=== PATIENT | male | born 1965 | race Caucasian/White ===

== ENCOUNTER 2018-11-28 23:52 | Observation (INO) | payer OTHER ==
[2018-11-29 00:39] LABS: #Basophils 0.1 thou/uL (0.0-0.2); #Eosinphils 0.1 thou/uL (0.0-0.7); #Lymphocytes 3.2 thou/uL (1.20-3.40); #Monocytes 0.9 thou/uL (0.11-0.59); #Neutrophils 5.7 thou/uL (1.40-6.50); %Eosinophils 1.1 % (0.0-10.0); %Lymphocytes 32.2 % (21.0-51.0); %Monocytes 8.9 % (0.0-10.0); %Neutrophils 56.8 % (42.0-75.0); Hemoglobin 14.8 g/dL (14.0-18.0); Mean Corpuscular HGB CONC 35.9 g/dL (32.0-36.0); Mean Corpuscular Hemoglobin 34.3 pg (27.0-31.0); Mean Corpuscular Volume 95.5 fL (78.0-98.0); Mean Platelet Volume 6.6 fL (7.4-10.4); Platelet Count 246 thou/uL (130-400); RBC Distribution Width 11.7 % (11.5-14.5); Red Blood Cell (RBC) Count 4.31 mill/uL (4.70-6.10); White Blood Cell (WBC) Count 10.1 thou/uL (4.8-10.8)
[2018-11-29 00:43] LABS: Bilirubin Negative (Negative); Blood, Urine Negative (Negative); Clarity CLEAR (Clear); Glucose, Urine (Dipstick) Negative (Negative); Leukocyte Negative (Negative); Nitrite Negative (Negative); Protein, Urine (Dipstick) Negative (Neg-Trace); Specific Gravity, Urine 1.003 (1.002-1.036); Urobilinogen 0.2 mg/dL (0.2-1.0)
[2018-11-29 00:55] LABS: ALT (SGPT) 14 U/L (8-55); AST (SGOT) 24 U/L (5-34); Albumin 4.2 g/dL (3.5-5.0); Alkaline Phosphatase 64 U/L (40-150); Anion Gap 16 mmol/L (10-20); BUN (Urea Nitrogen) 6 mg/dL (8.4-25.7); Bilirubin, Total 0.4 mg/dL (0.2-1.2); Calc. Creatinine Clearance 0 mL/min (70-130); Calcium 9.2 mg/dL (7.8-10.44); Carbon Dioxide 20 mmol/L (22-29); Chloride 101 mmol/L (98-107); Estimated GFR-MDRD Greater than 90; Globulin 3.8 g/dL (2.4-3.5); Glucose 109 mg/dL (70-105); Potassium 3.4 mmol/L (3.5-5.1); Sodium 134 mmol/L (136-145)
[2018-11-29] MEDS ORDERED: Adacel (T-DAP) 0.5 ML SYRINGE ONE (01:20)
[2018-11-29] MEDS ORDERED: Aspirin 325 MG TAB ONE (01:20)
[2018-11-29] MEDS ORDERED: ALPRAZolam 0.25 MG TAB ONE (01:20)
[2018-11-29 03:02] VITALS: BMI 29.5
[2018-11-29 05:56] LABS: Troponin I Less than 0.010 ng/mL (< 0.028)
[2018-11-29 06:44] LABS: Troponin I Less than 0.010 ng/mL (< 0.028)
--- NOTE | 2018-11-29 07:44 | RAD ---
XR Chest 1 View Portable History: [Syncope] Comparison: None. Findings: Heart size upper limits of normal. No pneumothorax. No effusion. No focal airspace consolid ation. Impression: Mild cardiomegaly otherwise no acute intrathoracic abnormality.
--- NOTE | 2018-11-29 07:47 | CT ---
PRELIMINARY REPORT/[facility]/EMERGENCY AFTER HOURS PROCEDURE: EXAM: CT Head Without Contrast EXAM DATE/TIME: 11/29/2018 12:40 AM CLINICAL HISTORY: 53 years old, male; Signs and symptoms; Syncope and collapse; Patient HX: Er6; No previous on pacs; 6 2 yo male presents for evaluation of syncope and chest pain. Patient and his report that earlier tonight while he was walking in the kitchen she heard him fall to the ground. By the time she got in there he was getting up. He does not recall the fall and doesn't remember falling. He denies h eart fluttering or the sensation that he was going to pass out TECHNIQUE: Imaging protocol: Axial computed tomography images of the head without contrast. COMPARISON: No relevant prior studies available. FINDINGS: Brain: Normal. Ventricles: Normal. Bones/joints: Normal. Sinuses: Minimal ethmoid sinus disease. Mastoid air cells: Normal as visualized. Soft tissues: Unremarkable. IMPRESSION: No acute intracranial abnormality. Thank you for allowing us to participate in the care of your patient. Dictated and Authenticated by: Pepe Cox MD 11/29/2018 12:59 AM Central Time ([place] & [place]) FINAL REPORT HEAD CT WITHOUT CONTRAST: Date: 11/29/18 HISTORY: Syncope. COMPARISON: None. FINDINGS: This report is in agreement with the preliminary report by Jonelle. No acute intracranial process. IMPRESSION: No acute intracranial process. POS: OFF
[2018-11-29] MEDS ORDERED: Nitroglycerin 0.4 MG TAB (25 Tab Bottle) PO PRN (09:47)
[2018-11-29] MEDS ORDERED: Bisacodyl 5 MG TAB PO PRN (09:47)
[2018-11-29] MEDS ORDERED: Potassium Chloride 20 MEQ TAB PO SCH (10:00)
[2018-11-29] MEDS: Acetaminophen 325 MG TAB PO PRN ×2 (11:46→20:01)
[2018-11-29] MEDS: Nicotine 21 MG PATCH TD SCH (11:48)
--- NOTE | 2018-11-29 14:25 | HP ---
PRIMARY CARE PROVIDER: None. CHIEF COMPLAINT: Chest pain. HISTORY OF PRESENT ILLNESS: Mr. Preston is a pleasant 53-year-old gentleman, who was seen at [facility] on November 29, 2018. He reports that last night, he was walking in the kitchen. His heard him fall to the ground. He did not recall the fall and did not remember falling. By the time his saw him, he was getting up from the floor. He denies having any palpitations. He denies having any lightheadedness. On further questioning, he reports that he has lost consciousness about 6 times over the last 4 years and 3 times over the last one month. Two of those occasions were following bouts of coughing. He also reports on and off left-sided chest pain that is dull, accompanied by left upper extremity numbness and tingling. He denies having any shortness of breath or lightheadedness. He is unable to read the intensity of the pain. He is unable to recall any aggravating or relieving factors. REVIEW OF SYSTEMS: All other systems reviewed and found to be negative. PAST MEDICAL HISTORY: None; he has not seen a physician in 25 years. PAST SURGICAL HISTORY: Knee surgery and elbow surgery. SOCIAL HISTORY: The patient drinks 6 to 10 beers a day, he smokes one and half packs of cigarettes a day, and he denies any recreational drug use. FAMILY HISTORY: He denies any family history of coronary artery disease. ALLERGIES: CHLORPHENIRAMINE AND CODEINE. CURRENT MEDICATIONS: None. PHYSICAL EXAMINATION: GENERAL: On examination, Mr. Preston is awake and alert, not in acute distress. VITAL SIGNS: Blood pressure is 132/72, pulse 88, respiratory rate 15, and oxygen saturation 95% on room air. He is afebrile. EYES: No scleral icterus. No conjunctival pallor. ENT: Moist mucosal membranes. No oropharyngeal erythema or exudates. NECK: Supple, nontender. Trachea is midline. RESPIRATORY: Accessory muscles of breathing are not active. Chest wall movements are symmetric bilaterally. Lungs are clear to auscultation without wheeze, rhonchi, or crepitations. CARDIOVASCULAR: S1 and S2 are heard, regular. Peripheral pulses palpable. No carotid bruit. No pericardial rub. ABDOMEN: Soft, nontender. Bowel sounds heard. No hepatomegaly. No splenomegaly. NEUROLOGIC: Cranial nerves 2 through 12 are intact. No focal motor or sensory deficits. Power is 5/5 in all 4 extremities. Deep tendon reflexes are 2+. Plantars downgoing bilaterally. MUSCULOSKELETAL: Power is 5/5 in all 4 extremities. SKIN: No rashes or subcutaneous nodules. LYMPHATIC: No cervical lymphadenopathy. PSYCHIATRIC: Normal mood, normal affect. The patient is oriented to person, place, and time. DIAGNOSTIC STUDIES: Mr. Preston' labs and investigations were reviewed. I reviewed his electrocardiogram, which shows normal sinus rhythm and incomplete right bundle-branch block, no ST changes to suggest an acute coronary syndrome. I also reviewed his chest x-ray, which does not show any pulmonary infiltrates. Noncontrast CT scan of the brain was unremarkable. She has an unremarkable CBC, decreased sodium of 134, decreased potassium of 3.4, decreased carbon dioxide of 20, normal anion gap, normal creatinine, and unremarkable liver profile. Troponin I is negative x3. Urinalysis is negative. Plasma alcohol level is elevated at 128. ASSESSMENT AND PLAN: Mr. Preston is a pleasant 53-year-old gentleman, who was seen at [facility] on November 29, 1018. His problem list includes: 1. Chest pain: Mr. Preston is presenting with chest pain of few months' duration. Given his risk factors, he will be admitted to the hospital on observation status. We will obtain stress test. Further management depending on the outcome of the test. We will also check D-dimer, since he also had episode of syncope. 2. Syncope: Etiology is unclear. We will check a 2D echocardiogram to rule out valvular abnormalities. We will also consult Cardiology Service for opinion and help with further management. 3. Hyponatremia: Mild, likely asymptomatic trauma. We will recheck sodium level. 4. Hypokalemia: Replace potassium and recheck. 5. Tobacco abuse: The patient has been counseled regarding tobacco cessation. We will start him on nicotine replacement therapy. 6. Daily alcohol use: The patient has been counseled regarding alcohol cessation. We will start him on ASE protocol. LEVEL OF RISK: High. LEVEL OF COMPLEXITY: High. Job ID: [id number]
--- NOTE | 2018-11-29 17:53 | NM ---
Nuclear medicine Cardiac myocardial perfusion SPECT Ejection fraction study Wall motion cine: DATE: 11/29/2018 History: 53 year old smoker presents with chest pain. TECHNIQUE: Number of days:1 Rest study: Technetium 99m-sestamibi (Cardiolite) dose:10.8 mCi Pharmacologic stress: Lexiscan dose:0.4 mg Stress study: Technetium 99m-sestamibi (Cardiolite) dose:27.9 mCi FINDINGS: Cardiac (myocardial perfusion) SPECT There are no fixed or reversible myocardial perfusion defects. Ejection fraction study Left ventricular EF = 71% Wall motion cine Normal IMPRESSION: Normal.
[2018-11-29] MEDS ORDERED: Regadenoson 0.4 MG/5 ML SYRINGE ONE (20:06)
[2018-11-29 20:29] LABS: Amphetamine Not Detected (NotDetected); Barbiturates Screen Not Detected (NotDetected); Benzodiazepine Screen Detected (NotDetected); Cocaine Metabolite Screen Not Detected (NotDetected); Medtox Control Line Valid? VALID (VALID); Medtox Reader # READER 1; Methadone Not Detected (NotDetected); Methamphetamine Not Detected (NotDetected); Opiate Screen Not Detected (NotDetected); Oxycodone Screen Not Detected (NotDetected); Phencyclidine (PCP) Not Detected (NotDetected); THC/Cannabinoid Screen Not Detected (NotDetected); Tricyclic Screen Not Detected (NotDetected)
--- NOTE | 2018-11-29 21:06 | CON ---
DATE OF CONSULTATION: PRIMARY CARE PHYSICIAN: No primary care doctor. PRIMARY WINDOW MACHINE OPERATOR: Melita Tariq MD REASON FOR CONSULTATION: Status post syncopal episodes. HISTORY OF PRESENT ILLNESS: Mr. Preston is a 53-year-old male with significant history of asthma, however, he is having followup with any doctor, primary care doctor, or any other doctor for more than 30 years. Last night when he was watching TV and he decided to get up to get some snack last night around 10:30 when he was at the kitchen, next thing he remembers he was on the floor. He denied any dizziness, lightheadedness, chest pain or discomfort, shortness of breath, or any cardiac complaints prior to the episode. This is his third episode of syncopal episode. He has syncopal episode twice within the 6 weeks, which occur at night with severe cough. He also complains of severe cough in the morning at least 10 to 20 minutes every morning for more than 1 year. At that time, however, he never passed out in the morning. He also complains about chronic headache around bilateral temporal areas and he had to take BC Powder several times a day. He drinks caffeine all day long with energy drink. He also complained of burning and numbness sensation to left upper shoulder especially when he drives. When he is driving, he use the left arm to drive. He also complained about left pressure like discomfort in the left upper chest for several years especially when he is driving and after he eat. At this moment, the patient denied dizziness, lightheadedness, chest pain or discomfort. He had chest numbness or burning like sensation to left upper shoulder without any other cardiac complaints. He never followed up with his primary care doctor before. He never has cardiac workup before. He drinks 16 ounces of beer and 9 pack a day and he smokes 1 to 1-1/2 pack a day. PAST MEDICAL HISTORY: in the past, he says 90% cured. The family member does not know exactly what is going on at this moment. He has a history of asthma and he takes yezg-qin-icaodni inhaler at home. PAST SURGICAL HISTORY: The patient has right knee and right elbow surgery when he was in college. FAMILY HISTORY: The patient's father due to the lung and bone cancer. The patient's mother has history of breast cancer. The patient's grandfather at the paternal side has a cancer. SOCIAL HISTORY: He is single, but he lives with his partner for more than 1-1/2 years, she is ER nurse. He drinks at least 16 ounces of beer 9 pack a day and night and smokes 1 to 1-1/2 packs of cigarettes per day. He denies history of drug abuse. He drinks Mountain Dew, tea, and monster, some energy drink whole day through the day. He does not do the exercise. ALLERGIES: ALL THE COUGH MEDICINES. CURRENT MEDICATIONS: He takes: 1. N-G-C. 2. Abpd-gkh-vlmjlzt testosterone supplement. 3. BC Powder. 4. Primatene Mist, which is inhaler [id number]-pcnbjai medication. REVIEW OF SYSTEMS: 12-point review of systems is negative unless otherwise mentioned in the HPI. PHYSICAL EXAMINATION: VITAL SIGNS: Blood pressure 132/72, pulse 88 and sinus rhythm, temperature 98.0, O2 saturation 95% with room air. GENERAL: The patient is alert and oriented x4, in no acute distress. HEENT: Normocephalic, atraumatic. Eyes, extraocular muscles intact. ENT and mouth; oral mucosa moist without lesion. NECK: Supple. Normal range of motion. No JVD. RESPIRATORY: Wheezing in bilateral lower lobes with intermediate severe cough without any phlegm or sputum. CARDIOVASCULAR: Regular rate and rhythm. S1 and S2. There is no S3 or S4. No significant murmur, hives, or thrill noted. EXTREMITIES: 2+ pulses in the bilateral upper and lower extremities. No edema in the lower extremities. The patient's carotid pulses are present without bruit or thrill. ABDOMEN: Soft, nontender. No mass to palpate. Bowel sounds are present. SKIN: Warm and dry. No erythema, lesion, or hematoma noticed. MUSCULOSKELETAL: The patient is able to move all extremities without difficulty. The patient denies claudication. NEUROLOGIC: The patient is alert and oriented x4. No acute distress. PSYCHIATRIC: The patient's mood is appropriate. Nonfocal. LABORATORY DATA: WBC 10.1, hemoglobin 14.8, hematocrit 41.1, platelets 246. Sodium 134, potassium 3.4, BUN 6, creatinine 0.77, AST 24, ALT 14. Troponins negative x3. Urine sample or UA is negative and plasma alcohol is 128. Chest x-ray shows mild cardiomegaly. Otherwise, no acute intracranial abnormality and CT shows no acute intracranial process. ASSESSMENT AND PLAN: 1. Syncopal episode. We would like to continue to monitor on the telemetry, and he has echocardiogram and a stress test ordered. We would like to see the result. His brain CT scan show a negative of intracranial change and we are recommending him to cut down his alcohol. 2. Shortness of breath also with wheezing, which is possibly due to possible chronic obstructive pulmonary disease. However, he has not followed up with his primary care doctor or any flame cutter for more than 30 years. He might need pulmonary function test as outpatient. The patient was recommended to start smoking cessation. 3. EtOH abuse. He drinks 16 ounces of beer 9 pack a day at least. He might need extra alcohol tonight to prevent delirium tremens. 4. Tobacco abuse. The patient was recommended to start smoking cessation. 5. Chest pain. He is complaining of chest pain and the pressure like chest pain to the left upper chest and burning and numbness like sensation to the left upper extremity for more than a year, which is possible from the symptom of severe coughing in the morning for more than a year. He is going to have a stress test while he is in the hospital with echocardiogram. We would like to see the result. Thank you very much for allowing the cardiology service to participate in the care of this patient. We will follow along with the patient's care team and make further recommendation as appropriate. Job ID: [id number]
--- NOTE | 2018-11-29 21:33 | CON ---
DATE OF CONSULTATION: 11/29/2018 INDICATION FOR CONSULTATION: A 53-year-old patient with chest pain and syncope. HISTORY OF PRESENT ILLNESS: This is a very pleasant 53-year-old gentleman who has not seen a doctor for more than 25 years. He says he has a history of asthma who uses uoya-rxe-fngpilf Primatene Mist, also drinks alcohol and continues to smoke 1-1/2 packs per day and has about 5 drinks a day. He had got up yesterday evening to go get some more snacks while he was lying in bed, watching TV and then apparently had a syncopal episode. He has been complaining of some dyspnea on exertion and some chest discomfort. He presented to the hospital today. His EKG shows decreased R-wave progression in V1 through V3, but cardiac enzymes are unremarkable. PAST MEDICAL HISTORY: Please refer to the notes dictated by my nurse practitioner. SOCIAL HISTORY: Please refer to the notes dictated by my nurse practitioner. FAMILY HISTORY: Please refer to the notes dictated by my nurse practitioner. REVIEW OF SYSTEMS: Please refer to the notes dictated by my nurse practitioner. MEDICATIONS: In the emergency room, he was given Xanax and aspirin. He has also been ordered Lovenox for tomorrow morning. PHYSICAL EXAMINATION: GENERAL: Reveals a well-developed, well-nourished gentleman, in no acute distress. VITAL SIGNS: Blood pressure 132/72, heart rate is stable . He is afebrile. Respiratory rate 15. HEENT: Unremarkable. Carotid pulses are present without bruits. CHEST: Shows diffuse expiratory wheezing, more so on the left side than the right. I did not hear any rhonchi. CARDIOVASCULAR: Reveals a regular rate and rhythm. Normal S1, S2. No S3 or S4. There are no significant murmurs, heaves, thrills, bruits, or rubs. ABDOMEN: Shows obesity. Positive bowel sounds. EXTREMITIES: Show no clubbing, cyanosis, or edema. Pedal pulses are present. NEUROLOGIC: Appears to be intact. SKIN: Warm and dry. He does have erythematous color to his skin. IMAGING: EKG shows a normal sinus rhythm with decreased R-wave progression in V1 through V4. Chest x-ray shows mild cardiomegaly. CT of the brain was unremarkable. LABORATORY DATA: Shows a BUN of 6, creatinine 0.77, potassium 3.4, sodium was 134, blood sugar 109. Hemoglobin 14.8, WBC of 10.1, platelet count 246,000. IMPRESSION: 1. Episode of syncope of uncertain etiology. He will undergo an echocardiogram and stress testing to rule out evidence of coronary artery disease, ischemia and also rule out any structural abnormalities. He has had other episodes of syncope apparently, but these were associated with coughing. He has had about 3 episodes of syncope in the last month or two. If we do not find any evidence of the etiology for the syncope, I would suggest he undergo implantation of a loop recorder for further evaluation. 2. History of mild cardiomyopathy. He will undergo an echocardiogram for better evaluation. 3. History of asthma. He has not seen a physician for 25 years. I suggest he find a primary care physician or nursing aide and also will need to undergo pulmonary function studies if his cardiac status rules out for evidence of underlying ischemia. Job ID: [id number] MTDD
[2018-11-30 05:20] LABS: #Basophils 0.1 thou/uL (0.0-0.2); #Eosinphils 0.1 thou/uL (0.0-0.7); #Monocytes 0.9 thou/uL (0.11-0.59); #Neutrophils 3.9 thou/uL (1.40-6.50); %Eosinophils 2.1 % (0.0-10.0); %Lymphocytes 28.1 % (21.0-51.0); %Monocytes 13.2 % (0.0-10.0); %Neutrophils 55.6 % (42.0-75.0); Hemoglobin 14.1 g/dL (14.0-18.0); Mean Corpuscular HGB CONC 34.1 g/dL (32.0-36.0); Mean Corpuscular Hemoglobin 33.5 pg (27.0-31.0); Mean Corpuscular Volume 98.2 fL (78.0-98.0); Mean Platelet Volume 6.9 fL (7.4-10.4); Platelet Count 238 thou/uL (130-400); RBC Distribution Width 11.8 % (11.5-14.5)
[2018-11-30 05:46] LABS: Anion Gap 12 mmol/L (10-20); BUN (Urea Nitrogen) 13 mg/dL (8.4-25.7); Calc. Creatinine Clearance 152 mL/min (70-130); Calcium 9.2 mg/dL (7.8-10.44); Carbon Dioxide 24 mmol/L (22-29); Chloride 106 mmol/L (98-107); Estimated GFR-MDRD Greater than 90; Glucose 93 mg/dL (70-105); Sodium 138 mmol/L (136-145)
[2018-11-30] MEDS ORDERED: Aspirin 325 mg Enteric Coated Tablet PO SCH (09:00)
[2018-11-30] MEDS ORDERED: Enoxaparin Sodium 40 MG/0.4 ML SYRINGE SC SCH (09:00)
[2018-11-30] MEDS: Nicotine 21 MG PATCH TD SCH (09:11)
[2018-11-30 12:40] VITALS: BP 126/60; TEMP 98.6
[2018-11-30] MEDS ORDERED: PROVENTIL INHALER 6.7 G (200 INHALATIONS) INH PRN (14:26)
--- NOTE | 2018-11-30 20:30 | DIS ---
DATE OF ADMISSION: 11/29/2018 DATE OF DISCHARGE: 11/30/2018 PRIMARY CARE PROVIDER: None. DISCHARGE DIAGNOSES: 1. Chest pain, most likely secondary to musculoskeletal etiology. 2. Syncopal episodes. 3. Hyponatremia. 4. Hypokalemia. CONDITION OF PATIENT ON THE DAY OF DISCHARGE: Stable. I assessed Mr. Preston on the day of discharge. He denies any chest pain or shortness of breath. Vital signs are stable. S1 and S2 are heard, regular. Lung examination reveals occasional expiratory wheeze. DISCHARGE MEDICATIONS: 1. Nicotine 21 mg patch daily. 2. Albuterol inhaler 2 puffs every 6 hours as needed. CONSULTATIONS DURING THIS HOSPITALIZATION: Cardiology, Dr. Tariq. HOSPITAL COURSE: Mr. Preston is a pleasant 53-year-old gentleman, who was admitted to [facility] on 11/29/2018, for chest pain. He also reported syncopal episodes. He was seen by Cardiology Service. He underwent stress test, which was normal. Left ventricular ejection fraction was 71%. 2D echocardiogram showed left ventricular ejection fraction of 55% to 60%, normal right ventricular size and function, normal-sized left atrium, normal size right atrium, trace mitral regurgitation, and structurally normal aortic valve. He improved in terms of symptoms. Cardiology Service has cleared him for discharge. He is advised to follow up with Cardiology Service as outpatient for consideration for loop recorder. He has also been advised to find a primary care provider and follow up with him in 3 to 5 days. He has been advised to stop driving until cleared by primary care provider, depending on investigations for syncope. DISCHARGE DESTINATION: Home. Job ID: [id number]
== END 2018-11-30 15:14 | disposition home or self-care (01) ==
LOC: ERS 23:52 → 2SW 11-29 01:20
PROVIDERS: ADMIT Hospitalist; ATTEND Hospitalist
DX: R07.9 Chest pain, unspecified (principal); R55 Syncope and collapse; E87.1 Hypo-osmolality and hyponatremia; F17.210 Nicotine dependence, cigarettes, uncomplicated; Z88.6 Allergy status to analgesic agent; Z88.8 Allergy status to other drugs, medicaments and biological substances
CPT/HCPCS: 36415; 70450; 71045; 78452; 80048; 80053; 80306; 80307; 81003; 84443; 84484; 85025; 85379; 90471; 90715; 93005; 93017; 93306; 94760; A9500; G0378; J1650; J2785

== ENCOUNTER 2019-04-27 23:13 | Emergency (ER) | payer OTHER ==
--- NOTE | 2019-04-27 23:50 | RAD ---
XR Chest 1 View Portable HISTORY: Chest pain COMPARISON: 11/29/2018 study FINDINGS: Heart size and mediastinum are within normal limits. The lungs are clear of infiltrates. A loop recorder device is seen over the left chest. IMPRESSION: No active intrathoracic disease.
[2019-04-28 00:01] LABS: #Basophils 0.1 thou/uL (0.0-0.2); #Eosinphils 0.2 thou/uL (0.0-0.7); #Lymphocytes 3.3 thou/uL (1.20-3.40); #Monocytes 1.3 thou/uL (0.11-0.59); #Neutrophils 9.9 thou/uL (1.40-6.50); %Basophils 0.7 % (0.0-1.0); %Eosinophils 1.4 % (0.0-10.0); %Lymphocytes 22.5 % (21.0-51.0); %Monocytes 8.4 % (0.0-10.0); Hemoglobin 14.1 g/dL (14.0-18.0); Mean Corpuscular HGB CONC 34.6 g/dL (32.0-36.0); Mean Corpuscular Hemoglobin 33.5 pg (27.0-31.0); Mean Corpuscular Volume 96.8 fL (78.0-98.0); Mean Platelet Volume 6.9 fL (7.4-10.4); Platelet Count 257 thou/uL (130-400); RBC Distribution Width 12.4 % (11.5-14.5); Red Blood Cell (RBC) Count 4.22 mill/uL (4.70-6.10); White Blood Cell (WBC) Count 14.8 thou/uL (4.8-10.8)
[2019-04-28 00:08] LABS: ALT (SGPT) 17 U/L (8-55); AST (SGOT) 32 U/L (5-34); Albumin 4.5 g/dL (3.5-5.0); Alkaline Phosphatase 64 U/L (40-110); Anion Gap 18 mmol/L (10-20); BUN (Urea Nitrogen) 9 mg/dL (8.4-25.7); Bilirubin, Total 0.3 mg/dL (0.2-1.2); Calc. Creatinine Clearance 0 mL/min (70-130); Calcium 9.1 mg/dL (7.8-10.44); Carbon Dioxide 22 mmol/L (22-29); Chloride 95 mmol/L (98-107); Estimated GFR-MDRD 86; Globulin 3.7 g/dL (2.4-3.5); Glucose 90 mg/dL (70-105); Potassium 3.6 mmol/L (3.5-5.1); Protein, Total 8.2 g/dL (6.0-8.3); Sodium 131 mmol/L (136-145)
--- NOTE | 2019-04-28 07:43 | CT ---
PRELIMINARY REPORT/[facility]/EMERGENCY AFTER HOURS PROCEDURE: PROCEDURE INFORMATION: Exam: CT Head Without Contrast Exam date and time: 04/27/2019 11:59 PM Clinical history: 53 years old, male; Syncope and collapse; Patient HX: Syncopal episode at 2230. Has loop monitor in place. Previous syncopal episodes which is why loop monitor is in place at this time. TECHNIQUE: Imaging protocol: Computed tomography of the head without contrast. COMPARISON: No relevant prior studies available. FINDINGS: Brain: No acute intracranial hemorrhage or mass effect. No definite acute infarct by CT. MRI could be more sensitive/specific for detection, as clinically directed. Ventricles: Ventricle size is normal for age. Bones/joints: No definite acute skull fracture. Sinuses: Included paranasal sinuses are essentially clear. Mastoid air cells: No significant acute finding. IMPRESSION: 1. No acute intracranial hemorrhage or mass effect. 2. No definite acute infarct by CT, see above. 3. Other findings discussed above. Thank you for allowing us to participate in the care of your patient. Dictated and Authenticated by: Henry Fairbanks MD 04/28/2019 12:12 AM Central Time ([place] & [place]) FINAL REPORT EMERGENT AFTER HOURS NONCONTRAST CT HEAD: HISTORY: Syncopal episode. Patient has a loop monitor in place. COMPARISON: 11/29/2018. IMPRESSION: 1. No acute intracranial abnormality is demonstrated. 2. Minimal sinus disease involving the ethmoidal air cells. 3. Findings are in agreement with the preliminary report by AIDE. Transcribed Date/Time: 04/28/2019 7:51 AM
--- NOTE | 2019-04-28 07:50 | CT ---
PRELIMINARY REPORT/[facility]/EMERGENCY AFTER HOURS PROCEDURE: PROCEDURE INFORMATION: Exam: CT Angiography Head Without And With Contrast Exam date and time: 04/28/2019 12:50 AM Clinical history: 53 years old, male; Syncope and collapse; Patient HX: Syncopal episode at 2230. Has loop monitor in place. Previous syncopal episodes which is why loop monitor is in place at this time TECHNIQUE: Imaging protocol: Computed tomographic angiography of the head without and with intravenous contrast. 3D rendering: MIP reconstructed images were created and reviewed. COMPARISON: CT Brain WO Con 04/27/2019 11:59 PM FINDINGS: Right internal carotid artery: Unremarkable. Intracranial segment is patent with no significant steno sis. No aneurysm. Right anterior cerebral artery: Unremarkable. No occlusion or significant stenosis. No aneurysm. Right middle cerebral artery: Unremarkable. No occlusion or significant stenosis. No aneurysm. Right posterior cerebral artery: Unremarkable. No occlusion or significant stenosis. No aneurysm. Right vertebral artery: Unremarkable. No occlusion or significant stenosis. No aneurysm. Left internal carotid artery: Unremarkable. Intracranial segment is patent with no significant stenos is. No aneurysm. Left anterior cerebral artery: Unremarkable. No occlusion or significant stenosis. No aneurysm. Left middle cerebral artery: Unremarkable. No occlusion or significant stenosis. No aneurysm. Left posterior cerebral artery: Unremarkable. No occlusion or significant stenosis. No aneurysm. Left vertebral artery: Unremarkable. No occlusion or significant stenosis. No aneurysm. Basilar artery: Unremarkable. No occlusion or significant stenosis. No aneurysm. HEAD: Brain: Unremarkable. No hemorrhage. No significant white matter disease. No edema. Ventricles: Normal. No ventriculomegaly. Bones/joints: Unremarkable. No acute fracture. Sinuses: Visualized sinuses are normal. No fluid levels. Mastoid air cells: Visualized mastoids are normal. No mastoid effusion. Soft tissues: Unremarkable. IMPRESSION: No acute findings. PROCEDURE INFORMATION: Exam: CT Angiography Neck Without And With Contrast Exam date and time: 04/28/2019 12:50 AM Clinical history: 53 years old, male; Syncope and collapse; Patient HX: Syncopal episode at 2230. Has loop monitor in place. Previous syncopal episodes which is why loop monitor is in place at this time TECHNIQUE: Imaging protocol: Computed tomographic angiography of the neck without and with intravenous contrast. 3D rendering: MIP reconstructed images were created and reviewed. COMPARISON: CT Brain WO Con 04/27/2019 11:59 PM FINDINGS: VASCULATURE: Right common carotid artery: Unremarkable. No stenosis. No dissection or occlusion. Right internal carotid artery: Unremarkable extracranial segment. No stenosis. No dissection or occlu giovana. Right external carotid artery: Unremarkable. No occlusion or stenosis of the origin. Right vertebral artery: Unremarkable. No stenosis. No dissection or occlusion. Left common carotid artery: Unremarkable. No stenosis. No dissection or occlusion. Left internal carotid artery: Unremarkable extracranial segment. No stenosis. No dissection or occlus ion. Left external carotid artery: Unremarkable. No occlusion or stenosis of the origin. Left vertebral artery: Unremarkable. No stenosis. No dissection or occlusion. NECK: Bones/joints: No acute fracture. Soft tissues: Normal. No significant soft tissue swelling. IMPRESSION: No acute findings. COMMENT: Reference per NASCET criteria for degree of stenosis: Mild: less than 50% stenosis. Moderate: 50-69% stenosis. Severe: 70-94% stenosis. Near occlusion: 95-99% stenosis. Thank you for allowing us to participate in the care of your patient. Dictated and Authenticated by: Tyrese Arroyo MD 04/28/2019 1:17 AM Central Time ([place] & [place]) FINAL REPORT EMERGENT AFTER HOURS CT ANGIOGRAM HEAD WITH IV CONTRAST AND 3D RECONSTRUCTIONS EMERGENT AFTER HOURS CT ANGIOGRAM NECK WITH IV CONTRAST AND 3D RECONSTRUCTIONS: HISTORY: Syncopal episode. Patient has a loop monitor in place. IMPRESSION: 1. Patent bilateral internal carotid arteries. 2. Patent bilateral vertebral arteries with left vertebral artery dominant. 3. No focal stenosis or branch occlusion is seen involving the [place] or vertebrobasilar sy stem. 4. No aneurysm is seen within the limitations of the technique of this examination. 5. Small mucous retention cyst right maxillary antrum. 6. Findings are in agreement with the preliminary report by AIDE. Transcribed Date/Time: 04/28/2019 7:57 AM
[2019-04-28] MEDS ORDERED: ISOVUE-370 76%-LOCM 1 ML ONE (12:00)
== END 2019-04-28 01:33 | disposition home or self-care (01) ==
LOC: ERS 23:13
DX: R55 Syncope and collapse (principal); F17.210 Nicotine dependence, cigarettes, uncomplicated; Z71.6 Tobacco abuse counseling
CPT/HCPCS: 70450; 70496; 70498; 71045; 80053; 84484; 85025; 93005; 99406; Q9966